=== PATIENT | female | born 1930 | race Caucasian/White ===

== ENCOUNTER 2016-11-02 22:13 | Emergency (ER) | payer MEDICARE ==
[2016-11-02 22:29] LABS: BASOPHILS 0.2 % (0.0-2.0); EOSINOPHILS 1.1 % (0.0-6.0); EOSINOPHILS# 0.1 X 10^3uL (0.0-0.4); HEMATOCRIT 40.9 % (36.0-48.0); HEMOGLOBIN 13.5 g/dL (12.0-16.0); LYMPHOCYTES 15.4 % (20.0-40.0); LYMPHOCYTES# 1.1 X 10^3uL (0.8-3.8); MEAN CELL VOLUME 87.8 fL (80.0-100.0); MEAN PLATELET VOLUME 8.2 fL (7.4-10.4); MONOCYTES 11.7 % (2.0-10.0); MONOCYTES# 0.9 X 10^3uL (0.2-1.0); NEUTROPHILS 71.6 % (54.0-75.0); NEUTROPHILS# 5.3 X 10^3uL (2.6-6.7); PLATELET COUNT 374 X 10^3uL (130-440); RED BLOOD COUNT 4.67 X 10^6uL (4.20-6.10); RED CELL DISTRIBUTION WIDTH 16.4 % (11.5-14.5); WHITE BLOOD COUNT 7.4 X 10^3uL (3.9-10.7)
[2016-11-02 22:41] LABS: CALCIUM 12.3 mg/dL (8.4-10.2); CHLORIDE 105 mmol/L (98-107); GLUCOSE 111 mg/dL (70-100); POTASSIUM 5.7 mmol/L (3.5-5.1); SODIUM 142 mmol/L (137-145)
[2016-11-02 22:51] LABS: BLOOD UREA NITROGEN 116 mg/dL (7-17)
[2016-11-02 22:55] LABS: INR 0.8
--- NOTE | 2016-11-03 00:41 | ER PHYSICIAN DOCUMENTATION ---
Physician Documentation [facility] Name:Vivi Kumar Age:86 yrs Sex:Female :1930 Arrival Date:11/02/2016 Time:22:10 BedTrauma-B Private MD:Jennifer Berumen ED, John Disposition: 11/02/16 23:58 Discharged to Home/Self Care. Impression: Renal Failure, Unspecified. - Condition is Good. - Discharge Instructions: Disease, End-Stage Kidney - CHRONIC RENAL FAILURE. - Medical Reconciliation form form. - Follow up: Private Physician; When: As needed; Reason: Continuance of care. - Problem is new. - Symptoms have improved. HPI: 11/02 22:20 This 86 yrs old Female presents to ER via EMS with complaints of Vaginal jm Bleeding. 22:20 The patient presents with vaginal bleeding that is. Onset: The symptoms/episode jm began/occurred 2 week(s) ago, and became worse today. Associated signs and symptoms: Pertinent negatives: fever, nausea. Severity of symptoms: in the emergency department the symptoms are unchanged. The patient has not recently seen a physician. According to , pts had a hysterectomy. Pt has been passing clots, soaking up 1 pad per 3 hours. does not want to give her blood. Pt is demented and nonverbal. . Historical: - Allergies: Morphine; SULFA (SULFONAMIDES); - Home Meds: 1. lisinopril 20 mg oral tab once daily 2. carvedilol 3.125 mg oral tab 1 tab 2 times per day with food 3. Folic Acid Oral 4. Docusate Sodium Oral - PMHx: HYPERTENSION; Pneumonia Bacterial - : RLL (July 27, 2014); - PSHx: Hysterectomy; Knee surgery; HIP SURGERY; - Tetanus: < 10 years. - Ebola Screening: : Patient denies travel to an Ebola-affected area in the 21 days before illness onset. No symptoms or risks identified at this time. . - Immunization history: Flu Vaccine < 1 year. - Social history: Smoking status: Patient states was never smoker of tobacco. - Advance directive:: Yes. - Code Status:: No code. ROS: 22:20 : Positive for vaginal bleeding. jm 22:20 Unable to obtain ROS due to baseline dementia. Exam: 22:20 Constitutional: The patient appears alert, awake, comfortable. 22:20 Abdomen/GI: Bowel sounds: normal, Palpation: abdomen is soft and non-tender. 22:20 Skin: Appearance: Color: pink, no rash present. 22:20 Neuro: Mentation: unable to follow commands, Abnormal movements: there are no abnormal movements. Vital Signs: 22:31 BP 110 / 90; Pulse 65; Resp 16; Temp 98.1(A); Pulse Ox 97% on 3 lpm NC; Weight 47.63 kg lc (R); Height 5 ft. (152.40 cm); Pain 0/10; 22:53 Pulse Ox 98% ; lc 23:19 BP 125 / 37 (auto/); lc 23:30 BP 145 / 53 (auto/); Pulse 65; Resp 16; Pulse Ox 96% on 3 lpm NC; Pain 0/10; lc 22:31 Body Mass Index 20.51 (47.63 kg, 152.40 cm) MDM: 22:22 Patient medically screened. 11/03 03:39 Differential diagnosis: cancer, ALVINO. Data reviewed: vital signs, nurses notes, lab test result(s), and as a result, I will discharge patient. Counseling: I had a detailed discussion with the patient and/or guardian regarding: the historical points, exam findings, and any diagnostic results supporting the discharge/admit diagnosis, lab results, the need for outpatient follow up, with the patient's primary care provider. ED course: Pt is full blown renal failure. CBC is normal however. I had long talk w about pt's wishes. At this time, he wishe to make pt comfort care and not persued transfer/dialysis. Daughter who is a MD, agrees w decision. [facility]'s updated. . 11/02 22:31 Order name: CBC AUTO DIF, MDIF/RMOR IF IND; Complete Time: 22:58 EDMS 11/02 22:52 Order name: BASIC METABOLIC PANEL; Complete Time: 22:58 EDMS 11/02 22:57 Order name: PROTIME/INR; Complete Time: 23:23 EDMS 11/02 22:34 Order name: Oxygen; Complete Time: 22:34 Dispensed Medications: No medications were administered Signatures: Ofelia Jacobs RN RN Juan Castillo MD MD jm
--- NOTE | 2016-11-03 00:41 | ER NURSING DOCUMENTATION ---
Nurse's Notes [facility] Name:Vivi Kumar Age:86 yrs Sex:Female :1930 Arrival Date:11/02/2016 Time:22:10 BedTrauma-B Private MD:Jennifer Berumen Diagnosis:Renal Failure, Unspecified Presentation: 11/02 22:22 Presenting complaint: EMS states: C/O VAGINAL BLEEDING FOR PAST FEW DAYS, UP TO A PAD lc EVERY 2 HRS. PATIENT HAS DIMENTIA AND IS IN ASSISTED LIVING AT [facility]. Transition of care: [facility]. 22:22 Method Of Arrival: EMS: 410 lc 22:22 Acuity: JHOANNE 2 lc Triage Assessment: 22:29 General: Appears comfortable, emaciated, Behavior is listless, NON-VERBAL. Pain: Denies lc pain. Neuro: Level of Consciousness is obtunded, STATES THAT'S NORMAL. Cardiovascular: Capillary refill < 3 seconds. GI: Abdomen is non- distended Abd is soft and non tender X 4 quads. : Reports vaginal bleeding that is with clots moderate flow. Derm: Skin is pale. Historical: - Allergies: Morphine; SULFA (SULFONAMIDES); - Home Meds: 1. lisinopril 20 mg oral tab once daily 2. carvedilol 3.125 mg oral tab 1 tab 2 times per day with food 3. Folic Acid Oral 4. Docusate Sodium Oral - PMHx: HYPERTENSION; Pneumonia Bacterial - : RLL (July 27, 2014); - PSHx: Hysterectomy; Knee surgery; HIP SURGERY; - Tetanus: < 10 years. - Ebola Screening: : Patient denies travel to an Ebola-affected area in the 21 days before illness onset. No symptoms or risks identified at this time. . - Immunization history: Flu Vaccine < 1 year. - Social history: Smoking status: Patient states was never smoker of tobacco. - Advance directive:: Yes. - Code Status:: No code. Screenin:33 Infectious Disease Risk None. Abuse screen: Denies threats or abuse. Denies injuries lc from another. Nutritional screening: No deficits noted. Assessment: 22:33 See Triage Assessment done by same RN. lc 23:48 Reassessment: Patient appears in no apparent distress at this time. VSS, NO EVIDENCE OF lc PAIN. DR MCHUGH DISCUSS LAB RESULTS AND POSSIBLE HOSPICE. NO NEW VAG BLEEDING NOTED.. Vital Signs: 22:31 BP 110 / 90; Pulse 65; Resp 16; Temp 98.1(A); Pulse Ox 97% on 3 lpm NC; Weight 47.63 kg lc (R); Height 5 ft. (152.40 cm); Pain 0/10; 22:53 Pulse Ox 98% ; lc 23:19 BP 125 / 37 (auto/); lc 23:30 BP 145 / 53 (auto/); Pulse 65; Resp 16; Pulse Ox 96% on 3 lpm NC; Pain 0/10; lc 22:31 Body Mass Index 20.51 (47.63 kg, 152.40 cm) ED Course: 22:10 Patient arrived in ED. em3 22:13 Jennifer Berumen MD is Private Physician. em3 22:19 Juan Mcdonald MD is Attending Physician. 22:22 Ofelia Jacobs, RN is Primary Nurse. lc 22:25 Triage completed. lc 22:33 Maintain field IV. Dressing intact. Good blood return noted. Site clean & dry. Gauge & lc site: 18G TO R AC. Oxygen Oxygen administration via nasal cannula @ 3L/min. 22:33 Valuables Remains with patient Patient has correct armband on for positive lc identification. Bed in low position. Call light in reach. Side rails up X2. Adult w/ patient. Pulse Ox - RN Monitoring Only NIBP On - RN Monitoring Only. Warm blanket given. Administered Medications: No medications were administered Outcome: 23:58 Discharge ordered by . lisa 11/03 00:22 Discharged to group home. Report called to STAFF Condition: stable Condition: [facility] HERE TO TAKE BACK TO [facility] Discharge Assessment: NO PAIN Discharge instructions given to significant other, Instructed on discharge instructions, follow up and referral plans. HOSPICE CARE Demonstrated understanding of instructions. IV D/Michel 00:39 Patient left the ED. lc Signatures: Ofelia Jacobs, RN RN Juan Castillo MD MD jm Meiklejohn, Eric em3 Delfina Mast [facility]
== END 2016-11-03 00:40 | disposition home or self-care (01) ==
LOC: ER 22:13 → EEVIPCON 22:13 → ER 11-03 00:40
DX: N93.9 Abnormal uterine and vaginal bleeding, unspecified (principal); N19 Unspecified kidney failure; F03.90 Unspecified dementia, unspecified severity, without behavioral disturbance, psychotic disturbance, mood disturbance, and anxiety; I10 Essential (primary) hypertension; Z79.899 Other long term (current) drug therapy; Z99.89 Dependence on other enabling machines and devices; Z74.3 Need for continuous supervision
CPT/HCPCS: 80048; 85025; 85610; 99284; A0425; A0427; A0429